=== PATIENT | male | born 1965 | race Caucasian/White ===

== ENCOUNTER → 2017-09-16 | Outpatient (CLI) | payer OTHER ==
[~2017-09-16] MED LIST: CALCIUM PO; DURAGESIC1 EAC2 TRANSDERM; ETODOLAC 400 M400 M1 PO; FLEXERIL PO; GLUCOSAMINE1000 MG PO; HYDROCODON-ACE1 EAC1 PO; HYDROCODON-ACE1 EAC5 PO; HYDROCODON-ACE1 EAC8 PO; MULTIVITAMINS1 EAC7 PO; OMEPRAZOLE PO; TAMSULOSIN HCL0.4 MG PO; TOPAMAX50 MG PO; VITAMIN D400 UNI1 PO
--- NOTE | 2017-09-29 15:29 | PAINCON ---
[facility] [address] [place] [address] PAIN MANAGEMENT CONSULTATION Name: BRIAN SOLIS Room: [facility] SaritaDeanna#: [id number] Admission: 09/16/17 Attend Phys: Ashlyn Chatterjee MD Discharge: Date of : 65 Report #: [id number] THIS REPORT FOR: //name// CC: DONIS Chatterjee DATE OF SERVICE: 09/16/2017 FOLLOWUP COMPLAINT: Pain in the lower back down into the legs bilaterally. Epidural injections in the past have been helpful. FOLLOWUP HISTORY: The patient is a 52-year-old gentleman, who has been seen in the pain clinic by Dr. Unruly Delarosa. This is my first visit with this patient. He has been seen and undergone epidural steroid injections. He has found that they have been helpful. He has had no complication from their use. He is having pain and discomfort at this juncture, which is more oriented to his right side. Notes that the pain has increased over the last few days. When his activity level goes up, he notes worsening of his pain. He is sleeping poorly as a result of this. It has been more problematic, particularly over the last 3 weeks. Rates his pain as a 3/10. Does use Zachary for pain control. The Flexeril can be helpful as well. He takes his nonsteroidal Etodolac 400 mg b.i.d. as well. Notes that the pain is exacerbated by walking, sitting, prolonged standing, lifting and bending. Pain improves with use of his medications, heat and rest. ALLERGIES: No known drug allergies. MEDICATIONS: Review of current medications, Zachary 7.5 mg 1 p.o. q.4-6 hours p.r.n. pain, Flexeril 10 mg q.8 hours 1-3 per day. Etodolac 400 mg b.i.d., glucosamine 1000 mg tablets daily, multivitamin 1 capsule daily, Prilosec daily, Flomax 0.4 mg daily. PAST MEDICAL HISTORY: 1. Chronic low back pain with lumbar radiculopathy. 2. Osteoarthritis. 3. Benign prostatic hypertrophy. 4. Gastroesophageal reflux. 5. Multilevel degenerative disk disease of lumbar spine with an L2-L3 herniated disk nucleus pulposus and L3-L4 herniated nucleus pulposus. PAST SURGICAL HISTORY: 1. Hernia repair. 2. Abscess debridement. 3. 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 REVIEW OF SYSTEMS: The patient wears glasses, has low back pain, nocturia. Other 14-point review of systems is unremarkable. PAIN CLINIC ASSESSMENT: 1. Osteoarthritis, low back area. 2. Weight 182 pounds, height 5 feet 10 inches, BMI is 26.3. 3. VITAL SIGNS: Blood pressure 132/82, heart rate 82, respiratory rate 16, room air saturation 97%, temperature 98.2. 4. Pain intensity 3/10 with worsening of pain at night. 5. The patient has not fallen in the last 3 months. 6. Blood thinner. The patient is not on a blood thinner. 7. History of hypertension. The patient is not being treated for hypertension. 8. Opioid therapy greater than 6 weeks. The patient is not on opioid therapy. 9. Risk assessment tool. 10. Functional assessment tool, rates pain as a 6/70 in regards to daily activities secondary to pain. 11. Recreational drug use. The patient denies recent use of recreational drugs. 12. Tobacco: The patient denies use of tobacco. 13. Alcohol: The patient denies frequent use of alcoholic beverages. PHYSICAL EXAMINATION: GENERAL: The patient is well developed white male, appears his stated age. ORIENTATION: He is alert and oriented x 3. AFFECT: The patient's affect appears appropriate. Speech is fluent. HEENT: Normocephalic, atraumatic. Extraocular eye muscles intact. Hearing is within normal limits. Mucous membranes are moist. Sclerae is not injected. NEUROLOGIC: Cranial nerves 2-12 grossly intact. NECK: Good range of motion without bruits or adenopathy. LUNGS: Clear to auscultation. No rales or rhonchi. CARDIOVASCULAR: Regular rate. ABDOMEN: Nontender, nondistended with normal bowel sounds. EXTREMITIES: Upper extremity, judged to be 5/5 for the major muscle groups in the upper extremity without sensory changes. Health Information Manager strength 5/5, muscle strength 5/5. Lower extremity has some pain and discomfort in the low back area with pain radiating down the L5 distribution, more problematic on the right then left at this juncture. Muscle strength is judged to be 5/5, has some ____ changes in the L4-L5 distribution on the right. ASSESSMENT: 1. Symptomatic lumbar radiculopathy, L4-L5. 2. Lumbar degenerative changes. 3. Chronic intractable pain. [address] [address] PAIN MANAGEMENT CONSULTATION Name: BRIAN SOLIS Room: [facility]#: [id number] Admission: 09/16/17 Attend Phys: Ashlny Chatterjee MD Discharge: Date of : 65 Report #: [id number] 4. Benign prostatic hypertrophy. 5. Gastroesophageal reflux. RECOMMENDATIONS: We discussed treatment options with the patient. Risks and benefits of an epidural steroid injection were discussed. Possible complications of the procedure were reviewed. The patient has had epidural steroid injection in the past and found that they were beneficial. At this point, he would like to proceed with another. He is on a nonsteroidal anti-inflammatory medication. He will continue to watch this use given his history of GI irritation/GERD. We will continue with his other medications of hydrocodone 10/325 p.r.n. and cyclobenzaprine. We discussed the treatment with the patient. Risks and benefits of an epidural steroid injection were again reviewed. The patient states that he has had a number of these in the past. The possible complications, which could include, but are not limited to infection, increased muscle soreness, headache, bleeding, nerve trauma and spinal headache were discussed. The patient elects to proceed. PROCEDURE NOTE: The patient was taken to the procedure area. He was assisted to the table. After appropriate placement on the table. The patient's back was sterilely prepped with a Betadine solution. Fluoroscopy using anterior, posterior as well as lateral viewing was performed. The target area was noted. A 0.25% bupivacaine was infiltrated at the right L4-L5 interspace. A 17-gauge Tuohy with loss of resistance technique was used to gain access to the epidural space. There was no CSF, heme or paresthesia. Total of 80 mg Depo-Medrol, 40 mg of triamcinolone and 2 mL of 0.25% bupivacaine was injected. The patient tolerated the procedure well. There were no complications. He was taken to the recovery room in good condition. A Band-Aid was placed over the site. There was no significant bleeding. A script for cyclobenzaprine 10 mg 1 p.o. t.i.d. was provided. The patient remained in the pain clinic for an appropriate amount of time. His pain was 3/10 at the time of discharge. A total of 18 seconds fluoroscopy time was used. We would like to thank you for letting us participate in his care. We hope he continues to improve. <ELECTRONICALLY SIGNED> By: Ashlyn Chatterjee MD 09/29/17 1529 [id number] 2049N. Scott Chatterjee MD /nt
== END | disposition home or self-care (01) ==
LOC: M.PC 01:19
DX: M54.16 Radiculopathy, lumbar region (principal); M51.36 Other intervertebral disc degeneration, lumbar region; G89.29 Other chronic pain; N40.0 Benign prostatic hyperplasia without lower urinary tract symptoms; K21.9 Gastro-esophageal reflux disease without esophagitis; Z98.890 Other specified postprocedural states; M19.90 Unspecified osteoarthritis, unspecified site; Z79.891 Long term (current) use of opiate analgesic; Z79.899 Other long term (current) drug therapy

== ENCOUNTER → 2018-04-07 | Outpatient (CLI) | payer OTHER ==
--- NOTE | 2018-05-04 16:08 | PAINCON ---
[address] [address] PAIN MANAGEMENT CONSULTATION Name: BRIAN SOLIS Room: [facility] Stefan#: [id number] Admission: 04/07/18 Attend Phys: Ashlyn Chatterjee MD Discharge: Date of : 65 Report #: [id number] THIS REPORT FOR: //name// CC: Yony Chatterjee DATE OF SERVICE: 04/07/2018 CHIEF COMPLAINT: "I'm beginning to note return of pain in my low back." HISTORY OF PRESENT ILLNESS: The patient is a 53-year-old gentleman who has been seen in the pain clinic in the past because of lumbar radiculopathy. He has undergone epidural steroid injections. He has had pain in his left as well as in the right leg in the L4-L5 distribution. At this juncture, he feels that the pain is more problematic on the left side. He received an epidural steroid injection at the last visit on the right side. That has not recurred. He has had no problem with bowel or bladder dysfunction. He continues to work on a daily basis. 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 He feels that he has noted some increased pain and discomfort while doing his job. Denies any bowel or bladder dysfunction. He has taken the medication as prescribed. He has continued to be forgo with use of hydrocodone medication. He feels that Flexeril would be helpful and would like to have a renewal of this medication. He notes that heat and rest are beneficial. ALLERGIES: No known drug allergies. CURRENT MEDICATIONS: 1. [place] 7.5 mg 1 p.o. q.4-6 hours. The patient takes them sparingly as tablets left over from about 6 months ago. 2. Flexeril 10 mg 1 p.o. t.i.d. 3. Etodolac 400 mg b.i.d.. 4. Glucosamine 1000 mg. 5. Multivitamin 1 capsule. 6. Prilosec 1 capsule daily. 7. Flomax 0.4 mg daily. PAIN CLINIC ASSESSMENT/PQRS: 1. The patient is not being treated for osteoarthritis or rheumatoid arthritis. 2. Height is 5 feet 10 inches, weight 185 pounds, BMI is 24. 3. Vital Signs: Blood pressure 135/83, heart rate 83, respiratory rate 16, room air saturation 97%, temperature 98.3. His pain score 2-3 depending on activity. 4. Fall. The patient has not fallen in the last 3 months. 5. Blood thinner. The patient is not on a blood thinning medication. 6. Hypertension. The patient is not being treated for hypertension. 7. Opioid therapy greater than 6 weeks. [place] [address] PAIN MANAGEMENT CONSULTATION Name: BRIAN SOLIS Room: [facility]#: [id number] Admission: 04/07/18 Attend Phys: Ashlyn Chatterjee MD Discharge: Date of : 65 Report #: [id number] medication on a regular basis. 8. Risk assessment tool, low for opioid use. 9. Functional assessment tool regarding daily activities. 10. Recreational drug use: The patient denies. 11. Tobacco: The patient denies use of tobacco. 12. Alcohol: The patient denies use of alcoholic beverages. PHYSICAL EXAMINATION: GENERAL: The patient is a well-developed, well-nourished white male. Appears his stated age. He is alert and oriented x 3. Affect is appropriate. Speech is fluent. HEENT: Normocephalic, atraumatic. Extraocular eye muscles are intact. Sclerae nonicteric. NEUROLOGIC: Cranial nerves grossly intact. LUNGS: Clear to auscultation without rhonchi or rales. ABDOMEN: Nontender. Bowel sounds present. MUSCULOSKELETAL: Without scoliosis, kyphosis or lordosis. The patient's upper extremity motor strength judged to be 5/5. Lower extremity motor strength 5/5 without sensory deprivation. Muscle strength is within normal limits. The patient has pain and discomfort that is radiating down to the L5/4 distribution, primarily on the left side. IMPRESSION: 1. Symptomatic lumbar radiculopathy on the left side at this time, has been on left and right side in the past. 2. Lumbar degenerative changes. 3. Chronic intractable pain. 4. Benign prostatic hypertrophy. 5. Gastroesophageal reflux. RECOMMENDATIONS: We discussed treatment options with the patient. Risks and benefits of an epidural steroid injection were again reviewed. They include but are not limited to infection, increased muscle soreness, headache, bleeding, worsening of pain, no improvement in pain, paralysis and the patient elects to proceed. PROCEDURE NOTE: The patient was taken to the exam room. He was assisted in getting on the examination table. He was placed in the prone position. His back was sterilely prepped with Betadine solution. A pillow was placed under his abdomen to bolster and improve positioning. Fluoroscopy using anterior, posterior as well as lateral viewing were implemented. The patient's back was sterilely prepped. A 0.25% bupivacaine was infiltrated at the L4-L5 area using a left median approach. A 17-gauge Tuohy was used. After appropriate placement 0.25% bupivacaine, a total of 80 mg Depo-Medrol, 40 mg triamcinolone and 2 mL of 0.25% bupivacaine was injected. The patient tolerated the procedure well. He remained in the pain clinic for an appropriate [place] [address] PAIN MANAGEMENT CONSULTATION Name: BRIAN SOLIS Room: [facility]#: [id number] Admission: 04/07/18 Attend Phys: Ashlyn Chatterjee MD Discharge: Date of : 65 Report #: [id number] Flexeril 10 mg 1 p.o. t.i.d. has been written. The patient will call us if he has any concerns. We would like to thank you for letting us participate in his care. We hope he continues to improve. <ELECTRONICALLY SIGNED> By: Ashlyn Chatterjee MD 05/04/18 1608 [id number] 1522N. Scott Chatterjee MD /nt
== END | disposition home or self-care (01) ==
LOC: M.PC 05:23
DX: M51.16 Intervertebral disc disorders with radiculopathy, lumbar region (principal); G89.29 Other chronic pain; N40.0 Benign prostatic hyperplasia without lower urinary tract symptoms; K21.9 Gastro-esophageal reflux disease without esophagitis; Z79.891 Long term (current) use of opiate analgesic; Z79.899 Other long term (current) drug therapy; Z98.890 Other specified postprocedural states

== ENCOUNTER → 2018-07-14 | Outpatient (CLI) | payer OTHER ==
--- NOTE | ~2018-07-14 | PAINCON ---
[address] [address] PAIN MANAGEMENT CONSULTATION Name: BRIAN SOLIS Room: [facility] BorisNeelamDeanna#: [id number] Admission: 07/14/18 Attend Phys: Ashlyn Chatterjee MD Discharge: Date of : 65 Report #: [id number] THIS REPORT FOR: //name// CC: Yony Chatterjee DATE OF SERVICE: 07/14/2018 PRIMARY CARE PHYSICIAN: Yony Carver Jr., DO CHIEF COMPLAINT: The patient is a 53-year-old gentleman who has been followed in the pain clinic because of lumbar radiculopathy. He has noticed over the last few weeks worsening of pain and discomfort. He underwent an epidural steroid injection number of months ago. He had very good relief from it. 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 Because of the increased pain and discomfort, he was unable to go to work because of the pain. He has returned to the pain clinic with a hope of undergoing another epidural steroid injection. Notes that the pain is worse with activities, walking, sitting, standing and certain movements. It involves his left side. Had no complication from the last injection. Denies any bowel or bladder dysfunction. The patient has used hydrocodone 7.5 mg and found that medication was efficacious as well. There was no clouding of his sensorium. 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 ALLERGIES: No known drug allergies. CURRENT MEDICATIONS: 1. [place] 7.5 mg 1 p.o. 4-6 hours p.r.n., the patient takes them sparingly. 2. Flexeril 10 mg 1 p.o. t.i.d. 3. Etodolac 400 mg b.i.d. 4. Glucosamine 1000 mg. 5. Multivitamin capsules. 6. Prilosec 1 capsule. 7. Flomax 0.4 mg. PAIN CLINIC ASSESSMENT/PQRS: 1. The patient is not being treated for osteoarthritis or rheumatoid arthritis. 2. Height 5 feet 10 inches, weight 185 pounds, BMI is 27. 3. VITAL SIGNS: Blood pressure 134/82, heart rate 90, respiratory rate 16, room air saturation 95%, temperature 98.2. 4. Pain intensity 08/28. 5. Fall history: The patient has not fallen in the last 3 months. 6. Blood thinner. The patient is not on a blood thinning medication. 7. Hypertension. The patient is not being treated for hypertension. 8. Opioid therapy greater than 6 weeks. The patient is not on opioid medication on a regular basis. 9. Risk assessment tool, [place] [address] PAIN MANAGEMENT CONSULTATION Name: BRIAN SOLIS [id number] Admission: 07/14/18 Attend Phys: Ashlyn Chatterjee MD Discharge: Date of : 65 Report #: [id number] 10. Functional assessment tool regarding activities of daily living. 11. Recreational drug use. The patient denies use of recreational drugs. 12. Tobacco: The patient denies use of tobacco. 13. Alcohol: The patient denies use of alcoholic beverages. PHYSICAL EXAMINATION: GENERAL: The patient is a well-developed, well-nourished white male. Appears his stated age. He is alert and oriented x 3. His affect is appropriate. Speech is fluent. HEENT: Normocephalic, atraumatic. Extraocular eye muscles intact. Sclerae nonicteric. Mucous membranes are moist. NECK: Without adenopathy or JVD. LUNGS: Clear to auscultation without rhonchi or rales. ABDOMEN: Nontender. Bowel sounds present. MUSCULOSKELETAL: Without significant kyphosis, lordosis, or scoliosis. The patient's upper muscle strength is judged to be 5/5 for the major muscle groups. Lower extremity muscle strength 5/5 for the lower extremity. The patient is having pain and discomfort, which is radiating down in the L4-L5 dermatomal distribution in his left leg. Positive straight leg raise. IMPRESSION: 1. Symptomatic lumbar radiculopathy on the left side, improved in the past with epidural steroid injection. 2. Lumbar degenerative changes. 3. Chronic intractable pain. 4. Benign prostatic hypertrophy. 5. Gastroesophageal reflux. RECOMMENDATIONS: We discussed treatment options with the patient. Risks and benefits of an epidural steroid injection were again reviewed. They include but are not limited to infection, worsening of pain, no improvement in pain, bleeding, worsening of symptoms, nerve damage with paralysis. The patient elects to proceed. PROCEDURE NOTE: The patient was taken to the procedure area. He was assisted in getting on the examination table. A pillow was placed under his abdomen to bolster and improve positioning. Fluoroscopy using anterior, posterior as well as lateral viewing were implemented. At the L4-L5 interspace, 0.25% bupivacaine was infiltrated. This area had been sterilely prepped with Betadine and allowed to dry. A 17-gauge Tuohy with loss of resistance technique using a left paramedian approach was undertaken. A total of 80 mg Depo-Medrol, 40 mg triamcinolone and 2 mL of 0.25% bupivacaine was injected. The patient tolerated the procedure well. There were no complications. A script for hydrocodone 7.5 mg 1 p.o. t.i.d., 90 tablets have been given. The patient will call [place] [address] PAIN MANAGEMENT CONSULTATION Name: BRIAN SOLIS Room: [facility]#: [id number] Admission: 07/14/18 Attend Phys: Ashlyn Chatterjee MD Discharge: Date of : 65 Report #: [id number] Total fluoroscopy time was about 10 seconds. By: [id number]. Scott Chatterjee MD /QUETA
== END | disposition home or self-care (01) ==
LOC: M.PC 12:47
DX: M51.16 Intervertebral disc disorders with radiculopathy, lumbar region (principal); G89.29 Other chronic pain; N40.0 Benign prostatic hyperplasia without lower urinary tract symptoms; K21.9 Gastro-esophageal reflux disease without esophagitis; Z79.899 Other long term (current) drug therapy; Z98.890 Other specified postprocedural states

== ENCOUNTER → 2019-01-05 | Outpatient (CLI) | payer OTHER ==
[~2019-01-05] MED LIST changes: +MOBIC15 MG PO
--- NOTE | ~2019-01-05 | PAINCON ---
[address] [address] PAIN MANAGEMENT CONSULTATION Name: BRIAN SOLIS Room: [facility]#: [id number] Admission: 01/05/19 Attend Phys: Ashlyn Chatterjee MD Discharge: Date of : 65 Report #: [id number] THIS REPORT FOR: //name// CC: DONIS Chatterjee DATE OF SERVICE: 01/05/2019 CHIEF COMPLAINT: Low back pain with pain down into the left leg. FOLLOWUP HISTORY: The patient is a 53-year-old gentleman who has been seen in the pain clinic because of lumbar radiculopathy. 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 Today's temperature is indexed at about 106. He noticed about 3 days ago, increasing pain in the low back area. He underwent an epidural steroid injection in June. He received 100% relief from his pain. Things have been going very well for the last 6 months. He denies any new activity, which would have spot this discomfort. Overall, it just has slowly increased over the last few days and has become more problematic at 5/10. He denies any new bowel or bladder dysfunction. ALLERGIES: No known drug allergies. CURRENT MEDICATIONS: Flexeril 10 mg 1 p.o. t.i.d., Glucosamine 1000 mg, hydrocodone 7.5/325 t.i.d., meloxicam 15 mg, multivitamins, Prilosec 1 tablet, Flomax 0.4 mg. PAIN CLINIC ASSESSMENT/PQRS: 1. The patient is not being treated for osteoarthritis or rheumatoid arthritis. 2. Height 5 feet 10 inches, weight 282 pounds, BMI is 26.2. 3. VITAL SIGNS: Blood pressure 127/79, heart rate 80, respiratory rate is 16, room air saturation is 96%. 4. Pain intensity 10/28/2018. 5. Fall history: The patient has not fallen in the last 3 months. 6. Blood thinner. The patient is not on a blood thinning medication. 7. Hypertension. The patient is not being treated for hypertension. 8. Opiate greater than 6 weeks. The patient receives his medications from one source, his primary. 9. Risk assessment for opioid use. 10. Functional assessment tool. 11. Recreational drug use. The patient denies use of recreational drugs. 12. Tobacco: The patient denies use of tobacco. 13. Alcohol. The patient rarely drinks alcoholic beverages. PHYSICAL EXAMINATION: GENERAL: The patient is a well-developed, well-nourished white male. Appears his stated age. He is alert and oriented x 3. [place] [address] PAIN MANAGEMENT CONSULTATION Name: BRIAN SOLIS [facility] [id number] Admission: 01/05/19 Attend Phys: Ashlyn Chatterjee MD Discharge: Date of : 65 Report #: [id number] Speech is fluent. HEENT: Normocephalic, atraumatic. Extraocular eye muscles intact. Sclerae nonicteric. Mucous membranes are moist. The patient is wearing his glasses. NECK: Without adenopathy or JVD. LUNGS: Clear to auscultation without rhonchi or rales. ABDOMEN: Nontender. Bowel sounds present. MUSCULOSKELETAL: Without significant scoliosis, kyphosis or lordosis. The patient's upper extremity muscle strength is judged to be 5/5 for the major muscle groups in the upper extremity. Lower extremity muscle strength is judged to be 5/5 for the major muscle groups. The patient is having pain and discomfort, which radiated down the left leg in the L4-L5 dermatomal distribution with a positive straight leg raise and sensory changes. IMPRESSION: 1. Symptomatic lumbar radiculopathy on the left improved, in the past with epidural steroid injections. 2. Lumbar degenerative changes. 3. Chronic intractable pain. 4. Benign prostatic hypertrophy. 5. Gastroesophageal reflux. RECOMMENDATIONS: We discussed treatment options with the patient. Risks and benefits of an epidural steroid injection were again discussed. They include but are not limited to infection, worsening of pain, no improvement in pain, nerve damage, spinal headache and the patient elects to proceed. PROCEDURE NOTE: The patient was taken to the procedure area. He was in getting on the examination table. His back was sterilely prepped with a Betadine solution. This was allowed to dry. Fluoroscopy using anterior, posterior as well as lateral viewing were implemented. A 0.25% bupivacaine was infiltrated at the L4-L5 interspace using a 25-gauge needle. A 17-gauge Tuohy with loss of resistance technique with a left paramedian approach was undertaken. A total of 80 mg Depo-Medrol, 40 mg triamcinolone and 2 mL of 0.25% bupivacaine was injected. The patient tolerated the procedure well. There were no complications. He remained in the pain clinic for an appropriate amount of time. He will follow up in the future as needed. We would like to thank you for letting us participate in his care. We hope he continues to improve. By: 1406 192N. Scott Chattrejee MD /nt
== END | disposition home or self-care (01) ==
LOC: M.PC 04:31
DX: M51.16 Intervertebral disc disorders with radiculopathy, lumbar region (principal); G89.29 Other chronic pain; K21.9 Gastro-esophageal reflux disease without esophagitis; N40.0 Benign prostatic hyperplasia without lower urinary tract symptoms; Z98.890 Other specified postprocedural states; Z79.899 Other long term (current) drug therapy; Z79.891 Long term (current) use of opiate analgesic

== ENCOUNTER → 2019-02-23 | Outpatient (CLI) | payer OTHER ==
--- NOTE | 2019-02-27 11:25 | PAINCON ---
[address] [address] PAIN MANAGEMENT CONSULTATION Name: BRIAN SOLIS [id number] Admission: 02/23/19 Attend Phys: Ashlyn Chatterjee MD Discharge: Date of : 65 Report #: [id number] THIS REPORT FOR: //name// CC: DONIS Chatterjee DATE OF SERVICE: 02/23/2019 CHIEF COMPLAINT: Pain in the left leg that is radiating down from the buttocks into the left leg. HISTORY: The patient is a 53-year-old gentleman who has been followed in the pain clinic. As you recall, he continues to improve after epidural steroid injections. He has noted a worsening of his pain over the last few weeks. 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 There is quite a bit of torsion associated with his job. He has noticed an increase in his pain and rates it as a 3/10. He received greater than 50% improvement after epidural steroid injections and has returned today with hopes of undergoing another injection. Notes that his medication is helpful. Rest is helpful. Heat can be helpful. He has returned today with a hope of undergoing an injection. ALLERGIES: No known drug allergies. CURRENT MEDICATIONS: Flexeril 10 mg 1 p.o. t.i.d., glucosamine 1000 mg, hydrocodone 7.5 mg 1 p.o. t.i.d., meloxicam 15 mg, multivitamins, Prilosec one tablet, Flomax 0.4 mg. PAIN CLINIC ASSESSMENT/PQRS: 1. The patient is not being treated for osteoarthritis or rheumatoid arthritis. 2. Height 5 feet 10 inches, weight 179 pounds, BMI is 25. 3. Vital signs: Blood pressure is 119/78, heart rate is 82, respiratory rate 18, room air saturation 95%, temperature 98.2. 4. Pain intensity 3/10. 5. Fall history: The patient has not fallen in the last 3 months. 6. Blood thinner. The patient is not on a blood thinning medication. 7. Hypertension. The patient is not being treated for hypertension. 8. Opioids greater than 6 weeks. The patient receives medication from one source his primary. 9. Risk assessment tool, low for opioid use. 10. Functional assessment tool. 11. Recreational drug use. The patient denies use of recreational drugs. 12. Tobacco: The patient denies use of tobacco. 13. Alcohol. The patient denies drinking alcoholic beverages except on rare occasions. PHYSICAL EXAMINATION: [place] [address] PAIN MANAGEMENT CONSULTATION Name: BRIAN SOLIS Room: [facility]#: [id number] Admission: 02/23/19 Attend Phys: Ashlyn Chatterjee MD Discharge: Date of : 65 Report #: [id number] GENERAL: The patient is a well-developed, well-nourished white male. Appears his stated age. He is alert and oriented x 3. His affect is appropriate. Speech is fluent. HEENT: Normocephalic, atraumatic. Extraocular eye muscles intact. Sclerae nonicteric. Mucous membranes are moist. NECK: Without adenopathy or JVD. LUNGS: Clear to auscultation without rhonchi or rales. ABDOMEN: Nontender. Bowel sounds present. MUSCULOSKELETAL: Without significant scoliosis, kyphosis or lordosis. Upper extremity muscle strength judged to be 5/5 for the major muscle groups in the upper extremity. The patient has muscle strength in the lower extremity 5/5. The patient has some pain and discomfort with pain that is radiating down in the L4-L5 dermatomal distribution involving the left leg with positive straight leg raise and sensory changes. Symptomatic lumbar radiculopathy on the left side, improved in the past with epidural steroid injection by 50%. IMPRESSION: 1. Lumbar radiculopathy. 2. Lumbar degenerative changes. 3. Chronic intractable pain. 4. Benign prostatic hypertrophy. 5. Gastroesophageal reflux. RECOMMENDATIONS: We discussed treatment options with the patient. Risks and benefits of an epidural steroid injection were again discussed. Possible complications of the procedure, which could include but are not limited to infection, worsening of pain, no improvement in pain were reviewed. The patient elects to proceed. PROCEDURE NOTE: The patient was taken to the procedure area. He was then assisted in getting on the examination table. His back was sterilely prepped with a Betadine solution. A 0.25% bupivacaine was infiltrated. A 17-gauge Tuohy with loss of resistance technique was used to gain access to the epidural space. There was no CSF, heme or paresthesia. Total of 80 mg Depo-Medrol, 40 mg triamcinolone and 2 mL of 0.25% bupivacaine was injected at the L4-L5 interspace after it had been anesthetized with a 25-gauge needle. The patient tolerated the procedure well. He was then taken to the recovery room where he remained for an appropriate amount of time. He will follow up in the future as needed. We would like to thank you for letting us participate in his care. We hope he continues to improve. <ELECTRONICALLY SIGNED> By: Ashlyn Chatterjee MD 02/27/19 [id number]. Scott Chatterjee MD /ladarius
== END ==
LOC: M.PC 05:11
DX: M51.16 Intervertebral disc disorders with radiculopathy, lumbar region (principal); G89.29 Other chronic pain; N40.0 Benign prostatic hyperplasia without lower urinary tract symptoms; K21.9 Gastro-esophageal reflux disease without esophagitis; I10 Essential (primary) hypertension; Z79.899 Other long term (current) drug therapy